=== PATIENT | female | born 1945 | race Caucasian/White ===

== ENCOUNTER 2018-06-25 09:17 | Emergency (ER) | payer MEDICARE, OTHER ==
[~2018-06-25] VITALS: Ht 165.1 cm; Wt 63.5 kg
[~2018-06-25 09:17] MED LIST: BIOTIN1 M1 PO; CALCIUM600 MG PO; COQ-10100 MG PO; FOSAMAX70 MG PO; IBUPROFEN600 MG PO; LETROZOLE2.5 MG PO; MAPAP325 MG PO; OXYCODON-ACETA1 EAC2 PO; POTASSIUM99 M1 PO; VITAMIN D33000 UNIT PO
[2018-06-25] MEDS ORDERED: PREDNISONE20 MG PO (10:09)
[2018-06-25] MEDS ORDERED: VENTOLIN HFA18 GM INH (10:09)
[2018-06-25] MEDS ORDERED: DOXYCYCLINE HY100 MG PO (10:09)
[2018-06-25] MEDS ORDERED: PSEUDOEPHEDRIN120 MG PO (10:10)
== END 2018-06-25 11:25 | disposition home or self-care (01) ==
LOC: ED 09:17
DX: J40 Bronchitis, not specified as acute or chronic (principal); J32.9 Chronic sinusitis, unspecified; Z90.710 Acquired absence of both cervix and uterus; Z79.899 Other long term (current) drug therapy
CPT/HCPCS: 99283

== ENCOUNTER 2021-05-21 10:39 | Emergency (ER) | payer MEDICARE, OTHER ==
[~2021-05-21] VITALS: Ht 165.1 cm; Wt 65.5 kg
[~2021-05-21 10:39] MED LIST changes: +ADULT LOW DOSE81 MG PO; +CALCIUM 1,0001 EACH PO; +CARDIZEM CD120 MG PO; +DOXYCYCLINE HY100 MG PO; +MOMETASONE FURO15 GM TOP; +PREDNISONE20 MG PO; +PREVAGEN PO; +PSEUDOEPHEDRIN120 MG PO; +VENTOLIN HFA18 GM INH; +WARFARIN SODIUM5 MG PO; +WOMEN'S 50 PLU1 EACH PO
[2021-05-21] MEDS ORDERED: AUGMENTIN 875-1 EACH PO (15:19)
[2021-05-21] MEDS ORDERED: VENTOLIN HFA18 GM INH (15:19)
[2021-05-21] MEDS ORDERED: GUAIFEN-CODEINE10 ML PO (15:19)
--- NOTE | 2021-05-22 18:53 | EKG ---
[facility] [address] [facility] [place] [address] Signed Atrial fibrillation Nonspecific ST and T wave abnormality Abnormal ECG When compared with ECG of 06-MAY-2020 15:17, ST elevation now present in Inferior leads ST now depressed in Lateral leads Confirmed by ANTHONY JHA MD ([id number]) on 05/22/2021 6:53:22 PM Electronically Signed By: ANTHONY JHA MD [id number] PATIENT NAME: ETIENNE DANIEL Electrocardiogram DATE OF : 47 PHYSICIAN: ANTHONY JHA MD REPORT #: [id number] REPORT IS CONFIDENTIAL AND NOT TO BE RELEASED WITHOUT AUTHORIZATION
== END 2021-05-21 15:28 | disposition home or self-care (01) ==
LOC: ED 10:39
DX: J40 Bronchitis, not specified as acute or chronic (principal); I48.91 Unspecified atrial fibrillation; Z20.822 Contact with and (suspected) exposure to COVID-19; Z85.3 Personal history of malignant neoplasm of breast; Z79.899 Other long term (current) drug therapy; Z79.01 Long term (current) use of anticoagulants
CPT/HCPCS: 71045; 80053; 81001; 84484; 85025; 85379; 85610; 87088; 93005; 93010; 94640; 96374; 96375; 96376; 99284-25; C9803; J1100; J7030; U0003

== ENCOUNTER 2024-02-28 10:30 | Emergency (ER) | payer MEDICARE, OTHER ==
[~2024-02-28] VITALS: Ht 165.1 cm; Wt 60.6 kg
[~2024-02-28 10:30] MED LIST changes: +ATORVASTATIN CA20 MG PO; +AUGMENTIN 875-1 EACH PO; +BRIMONIDINE TART5 ML OU; +DORZOLAMIDE-TIM10 ML OU; +GUAIFEN-CODEINE10 ML PO; +LATANOPROST2.5 ML OU; +PREDNISOLONE ACE5 ML OS
[2024-02-28] MEDS ORDERED: ELIQUIS5 MG PO (10:47)
[2024-02-28] MEDS ORDERED: SODIUM CHLORIDE 0.9% 1,000 ML IV ONE (11:15)
[2024-02-28] MEDS ORDERED: ondansetron HCL 4 MG/2 ML VIAL IV ONE (11:15)
[2024-02-28 11:26] LABS: HEMOGLOBIN 13.4 g/dL (12.0-18.0)
[2024-02-28 11:29] LABS: HEMATOCRIT 40.2 % (35.0-50.0); MCH 30.1 (27-36); MCHC 33.4 g/dl (30-36); PLATELET COUNT 139 K/uL (140-440); RBC 4.47 M/ul (4.3-5.7); RDW 13.7 (10.5-15.0)
[2024-02-28 11:35] LABS: ALBUMIN 3.8 g/dL (3.4-5.0); ALBUMIN/GLOBULIN RATIO 1.36 (1.1-2.4); ANION GAP 10.6 (7-21); BILIRUBIN, TOTAL 1.3 ng/dL (0.2-1.0); BUN/CREATININE RATIO 18.62 (6.0-28.6); CREATININE, SERUM 1.02 mg/dL (0.55-1.02); POTASSIUM 3.6 mmol/L (3.5-5.1); PROTEIN, TOTAL 6.6 g/dL (6.4-8.2)
[2024-02-28 11:40] LABS: CALCIUM 8.6 mg/dL (8.5-10.1)
[2024-02-28 11:49] LABS: BANDS, MANUAL DIFF 4; BASOPHILS, MANUAL DIFF 1; LYMPHOCYTES, MANUAL DIFF 10; MONOCYTES, MANUAL DIFF 8; NEUTROPHILS, MANUAL DIFF 77
[2024-02-28 12:16] LABS: LACTIC ACID, BLOOD 0.9 mmol/L (0.4-2.0)
[2024-02-28 12:36] LABS: INFLUENZA B NAA NEGATIVE (NEGATIVE); RESPIRATORY SYNCYTIAL VIR NAA NEGATIVE (NEGATIVE)
[2024-02-28 12:44] LABS: BILIRUBIN, URINE NEGATIVE (negative); BLOOD/HGB, URINE TRACE-I (Negative); KETONE, URINE SMALL (Negative); LEUK ESTERASE, URINE SMALL (negative); NITRITE, URINE POSITIVE (negative); PH, URINE 7.5 (5-7)
[2024-02-28 12:50] LABS: RED BLOOD CELLS, URINE 0-1 /hpf (0-5)
[2024-02-28 12:51] LABS: BACTERIA, URINE 3+ /hpf (negative); CASTS, URINE NONE SEEN \\lpf; COLLECTION TYPE, URINE CLEAN CATCH; CRYSTALS, URINE NONE SEEN (0-1+); EPITHELIAL CELLS, URINE 0 /lpf (0-1+); REFLEX CULTURE, URINE Yes (No)
[2024-02-28] MEDS ORDERED: AZITHROMYCIN 250 MG TAB PO ONE (13:15)
[2024-02-28] MEDS ORDERED: CEFTRIAXONE/SODIUM CHLORIDE 2 GM/100 ML PIGGYBACK IV ONE (13:15)
[2024-02-28] MEDS ORDERED: AMOX TR-K CLV1 EAC1 PO (14:08)
[2024-02-28] MEDS ORDERED: DOXYCYCLINE HY100 MG PO (14:08)
[2024-02-28 14:14] VITALS: BP 114/53
--- NOTE | 2024-02-28 22:28 | EKG ---
[facility] [address] [facility] [place] [address] Signed Normal sinus rhythm Nonspecific ST and T wave abnormality Abnormal ECG When compared with ECG of 21-MAY-2021 10:56, Sinus rhythm has replaced Atrial fibrillation Vent. rate has decreased BY [address] no longer elevated in Inferior leads Confirmed by Vikash Bynum MD () on 02/28/2024 10:28:09 PM Electronically Signed By: VIKASH BYNUM MD 02/28/24 2228 PATIENT NAME: ETIENNE DANIEL Electrocardiogram DATE OF : 47 PHYSICIAN: VIKASH BYNUM MD REPORT #: [id number] REPORT IS CONFIDENTIAL AND NOT TO BE RELEASED WITHOUT AUTHORIZATION
== END 2024-02-28 14:17 | disposition home or self-care (01) ==
LOC: ED 10:30
PROVIDERS: Emergency Medicine
DX: J98.4 Other disorders of lung (principal); N39.0 Urinary tract infection, site not specified; Z79.899 Other long term (current) drug therapy; Z11.52 Encounter for screening for COVID-19
CPT/HCPCS: 36415; 71045; 80053; 81001; 83605; 85025; 87040; 87088; 87502; 93005; 93010; 96361; 96365; 96375; 99285-25; J0696; J2405; J7030; U0002